=== PATIENT | female | born 1995 | race African-American/Black ===

== ENCOUNTER 2020-12-25 05:20 | Emergency (ER) | payer BC, SELFPAY ==
--- NOTE | ~2020-12-25 | CT_ITS ---
EXAMINATION: CT abdomen pelvis w con DATE: 12/25/2020 06:21 INDICATION: Upper abdominal pain TECHNIQUE: Computed tomography (CT) of the abdomen and pelvis was performed with 100 cc Omnipaque 350 intravenous contrast. The dose-length product was 256.34 mGy-cm. Automated exposure control and iterative reconstruction technique were employed. COMPARISON: None. FINDINGS: Lung bases are unremarkable. Heart size is normal. No significant vascular abnormality. No lymphadenopathy. The liver, spleen, pancreas, adrenal glands and kidneys are unremarkable. Gallbladder is present. No lymphadenopathy. Gallbladder is present. Nonobstructive bowel gas pattern. No abnormal pelvic masses. No free air or free fluid. No acute osseous abnormality. IMPRESSION: 1. No acute abdominal abnormality. Reviewed, dictated and finalized at location A.
[2020-12-25 05:28] VITALS: PULSE 99; RESP 16; TEMP 36.2; O2SAT 100
[2020-12-25 05:44] LABS: Basophils Percent Auto 0.4 % (0.2-1.2); Eosinophils Absolute Auto 0.1 K/mm3 (0-0.3); Eosinophils Percent Auto 0.9 % (0-4.4); Hematocrit 44.2 % (37.0-47.0); Hemoglobin 14.8 g/dL (12.0-15.0); Immature Granulocyte Absolute 0.03 K/mm3 (0.00-0.031); Immature Granulocyte Percent A 0.4 % (0-0.5); Lymphocytes Absolute Auto 2.34 K/mm3 (0.9-3.2); Lymphocytes Percent Auto 30.4 % (18.3-44.2); Mean Corpuscular HGB Conc 33.5 g/dl (32-36); Mean Corpuscular Hemoglobin 29.7 pg (26-34); Mean Corpuscular Volume 88.8 fl (80-100); Mean Platelet Volume 9.4 fl (7.4-10.4); Monocytes Absolute Auto 0.6 K/mm3 (0.1-0.6); Monocytes Percent Auto 7.5 % (2.6-8.5); Neutrophils Absolute Auto 4.7 K/mm3 (1.3-6.7); Neutrophils Percent Auto 60.4 % (45.5-73.1); Platelet Count Result 267 k/mm3 (150-375); Red Blood Count 4.98 M/mm3 (4.2-5.4); Red Cell Distribution Width 11.9 % (11.5-14.5); White Blood Count 7.7 K/mm3 (4.5-10.0)
[2020-12-25 05:46] LABS: Add Urine Microscopic? NO; Appearance Urine Clear (Clear); Bilirubin Urine Negative (Negative); Blood Urine Negative (Negative); Color Urine Yellow (Yellow); Glucose Urine UA Negative (Negative); Ketones Urine Negative (Negative); Leukocyte Esterase Ur Negative LEU/UL (Negative); Nitrate Urine Negative (Negative); Protein Urine Negative (Negative); Specific Grav Ur 1.014 (1.001-1.035); Urobilinogen Urine Negative mg/dL (<2.0)
[2020-12-25 05:56] LABS: Alanine Aminotransferase 13 U/L (4-35); Albumin Level 4.7 g/dL (3.5-5.1); Alkaline Phosphatase 52 U/L (38-126); Anion Gap 7 mmol/L (8-16); Aspartate Amino Transferase 24 U/L (14-36); Bilirubin,Total 0.5 mg/dL (0.2-1.3); Blood Urea Nitrogen 12 mg/dL (7-17); Calcium 9.8 mg/dL (8.4-10.2); Carbon Dioxide 31 mmol/L (22-30); Chloride 102 mmol/L (98-107); Estimated CRCL calculation 96 ml/min; Estimated Glomerular Filt Rate > 60; Glucose 98 mg/dL (65-105); Lipase 61 U/L (23-300); Potassium 3.7 mmol/L (3.4-5.0); Sodium 140 mmol/L (137-145)
--- NOTE | 2020-12-25 05:59 | ED.ABDPAIN ---
HPI - Abdominal Pain General Chief Complaint: Abdominal Pain Stated Complaint: abd pain, nausea Time Seen by Provider: 12/25/20 05:32 Source: patient and RN notes reviewed Mode of arrival: ambulatory Limitations: no limitations History of Present Illness HPI narrative: This patient is a 25 year old female who presents for evaluation of mid abdominal pain. She states this pain is intermittent and it has been present for 4 days. She states her pain may last for 45 minutes and she currently has pain now. She has been taking ibuprofen every other day for her chronic feet pain and abdominal pain. She has severe nausea but denies diarrhea or vomiting. She also denies melena. She denies fever or chills. She states she has had similar pain in the past but this is worse. She reports evaluation with upper endoscopy years ago and she was diagnosed with gastritis. Related Data Allergies Allergy/AdvReac Type Severity Reaction Status Date / Time adalimumab Allergy Intermediate RASH AT Verified 08/09/16 12:36 INJECTION SITE meloxicam AdvReac Intermediate HIVES ON Verified 08/09/16 12:36 LEGS EMBREL Allergy Intermediate RASH AT Uncoded 08/09/16 12:36 INJECTION SITE Chloroprep Allergy Rash Uncoded 12/25/20 05:33 Review of Systems Review of Systems: All systems reviewed & are unremarkable except as noted in HPI and below Constitutional: Constitutional: Denies chills and Denies fever(s) Cardiovascular: Cardiovascular: Denies chest pain Respiratory: Respiratory: Denies cough and Denies dyspnea Gastrointestinal: Gastrointestinal: Reports abdominal pain, Denies constipation, Denies diarrhea, Reports nausea and Denies vomiting Musculoskeletal: Musculoskeletal: Denies back pain [facility] Past Medical History Medical History (Updated 12/25/20 @ 07:15 by Vale Sinha MD) Gastritis Rheumatoid arthritis Uveitis Surgical History Surgical History (Updated 12/25/20 @ 06:00 by Vale Sinha MD) H/O endoscopy Social History Social History (Updated 12/25/20 @ 06:00 by Vale Sinha MD) Smoking status: Never smoker Exam Const: General: no acute distress and alert Orientation/consciousness: patient oriented x3 Eyes: EOM: EOMs intact bilaterally Resp: Effort & Inspection: normal respiratory effort and no retractions Auscultation: clear to auscultation bilaterally Cardio: Rate: regular rate Rhythm: regular rhythm Heart sounds: no murmurs GI: GI Palp: Yes Soft to palpation, Yes Tenderness to palpation present (GI) (RUQ, epigastric, LUQ) and No Guarding due to palpation present (GI) Auscultation: normal bowel sounds Skin: General skin exam: normal color Rashes: no rashes Neuro: General: patient oriented x3, moves all extremities and CN's II-XI intact bilaterally Course Reevaluation(s) Reevaluation #1: I discussed with patient labs and CT are unremarkable. She will treated for PUD as cause of her pain. She will follow up with GI or PCP Date: 12/25/20 Vital Signs Vital signs: Vital Signs Temperature 97.2 F L 12/25/20 05:28 Pulse Rate 99 12/25/20 05:28 Respiratory Rate 16 12/25/20 05:28 Pulse Oximetry 100 12/25/20 05:28 Temperature 97.2 F L 12/25/20 05:28 Pulse Rate 94 12/25/20 06:43 Respiratory Rate 20 12/25/20 06:43 Blood Pressure 115/77 12/25/20 06:43 Pulse Oximetry 100 12/25/20 06:43 MDM - Abdominal Pain Lab Data Attestation: I reviewed the patient's lab results. Result diagrams: 12/25/20 05:33 12/25/20 05:33 Labs: Lab Results 12/25/20 12/25/20 12/25/20 Range/Units 05:33 05:33 05:34 WBC 7.7 (4.5-10.0) K/mm3 RBC 4.98 (4.2-5.4) M/mm3 Hgb 14.8 (12.0-15.0) g/dL Hct 44.2 (37.0-47.0) % MCV 88.8 (80-100) fl MCH 29.7 (26-34) pg MCHC 33.5 (32-36) g/dl RDW 11.9 (11.5-14.5) % Plt Count 267 (150-375) k/mm3 MPV 9.4 (7.4-10.4) fl Immature Gran % (Auto) 0.4 (0
[2020-12-25] MEDS: LACTATED RINGERS 1,000 ML 999 ML IV CONT (06:17)
[2020-12-25] MEDS: PANTOPRAZOLE SODIUM IV 40 MG VIAL IV PUSH (06:18)
[2020-12-25] MEDS: ONDANSETRON INJ 4 MG/2 ML VIAL IV PUSH (06:18)
[2020-12-25 06:43] VITALS: BP 115/77; PULSE 94; RESP 20; O2SAT 100
[2020-12-25] MEDS: BELLADONNA ALK/PHENOB ELIX 10 ML, MAG HYDROX/ALUMINUM HYD/SIMETH 30 ML, LIDOCAINE HCL 2... PO (07:19)
[2020-12-25 07:29] VITALS: BP 101/65; PULSE 76; RESP 18; O2SAT 100
== END 2020-12-25 07:30 | disposition home or self-care (01) ==
PROVIDERS: Emergency Provider General Practice
DX: R10.13 Epigastric pain (principal); M06.9 Rheumatoid arthritis, unspecified
CPT/HCPCS: 36415; 74177; 80053; 81003; 81025; 83690; 85025; 96361; 96365; 96375; 99284; A9270; C9113; J0131; J2405; J7120; Q9967

== ENCOUNTER 2021-03-29 12:37 | Emergency (ER) | payer BC, SELFPAY ==
[2021-03-29 13:06] VITALS: BP 141/77; PULSE 90; RESP 16; TEMP 36.6; O2SAT 100
[2021-03-29 13:31] LABS: Basophils Percent Auto 0.3 % (0.2-1.2); Eosinophils Percent Auto 0.5 % (0-4.4); Hematocrit 39.1 % (37.0-47.0); Hemoglobin 13.2 g/dL (12.0-15.0); Immature Granulocyte Absolute 0.03 K/mm3 (0.00-0.031); Immature Granulocyte Percent A 0.3 % (0-0.5); Lymphocytes Percent Auto 12.7 % (18.3-44.2); Mean Corpuscular HGB Conc 33.8 g/dl (32-36); Mean Corpuscular Hemoglobin 30.1 pg (26-34); Mean Corpuscular Volume 89.1 fl (80-100); Mean Platelet Volume 9.5 fl (7.4-10.4); Monocytes Absolute Auto 0.3 K/mm3 (0.1-0.6); Neutrophils Absolute Auto 7.2 K/mm3 (1.3-6.7); Neutrophils Percent Auto 83.2 % (45.5-73.1); Platelet Count Result 268 k/mm3 (150-375); Red Blood Count 4.39 M/mm3 (4.2-5.4); Red Cell Distribution Width 11.9 % (11.5-14.5); White Blood Count 8.6 K/mm3 (4.5-10.0)
[2021-03-29 13:34] LABS: Add Urine Microscopic? NO; Appearance Urine Clear (Clear); Bilirubin Urine Negative (Negative); Blood Urine Negative (Negative); Color Urine Straw (Yellow); Glucose Urine UA Negative (Negative); Ketones Urine Negative (Negative); Leukocyte Esterase Ur Negative LEU/UL (Negative); Nitrate Urine Negative (Negative); Protein Urine Negative (Negative); Specific Grav Ur 1.006 (1.001-1.035); Urobilinogen Urine Negative mg/dL (<2.0)
[2021-03-29 13:50] LABS: Alanine Aminotransferase 13 U/L (4-35); Albumin Level 4.4 g/dL (3.5-5.1); Alkaline Phosphatase 53 U/L (38-126); Anion Gap 6 mmol/L (8-16); Aspartate Amino Transferase 23 U/L (14-36); Bilirubin,Total 0.2 mg/dL (0.2-1.3); Blood Urea Nitrogen 8 mg/dL (7-17); Calcium 9.1 mg/dL (8.4-10.2); Carbon Dioxide 26 mmol/L (22-30); Chloride 100 mmol/L (98-107); Estimated CRCL calculation 121 ml/min; Estimated Glomerular Filt Rate > 60; Glucose 109 mg/dL (65-110); Lipase 83 U/L (23-300); Potassium 3.7 mmol/L (3.4-5.0); Sodium 132 mmol/L (137-145)
--- NOTE | 2021-03-29 17:14 | PC.NURSE ---
patient called from the waiting room without answer at this time. patient not answering in waiting room or outside.
== END 2021-03-29 17:48 | disposition left against medical advice (07) ==
PROVIDERS: Emergency Provider Emergency Medicine
DX: Z53.21 Procedure and treatment not carried out due to patient leaving prior to being seen by health care provider (principal); R10.11 Right upper quadrant pain
CPT/HCPCS: 36415; 80053; 81003; 81025; 83690; 85025; 99199

== ENCOUNTER 2022-02-03 11:42 | Outpatient (RCR) | payer OTHER, SELFPAY ==
[2022-02-02 09:34] LABS: Hemoglobin 11.2 g/dL (12.0-15.0)
[2022-02-02 09:52] LABS: Glucose 1 Hour PP 50gm Dose 90 mg/dL
[2022-02-02 10:30] LABS: HIV 1/2 Ab P24 Ag Result Negative (Negative)
[2022-02-03] MEDS: RHO(D) IMMUNE GLOBULIN 300 MCG/2 ML SYRINGE IM (15:50)
== END 2022-02-03 12:00 | disposition home or self-care (01) ==
LOC: ANHLAB 11:42
PROVIDERS: Visit Provider Advanced Practice Midwife
DX: Z11.4 Encounter for screening for human immunodeficiency virus [HIV] (principal); Z29.13 Encounter for prophylactic Rho(D) immune globulin; O36.0190 Maternal care for anti-D [Rh] antibodies, unspecified trimester, not applicable or unspecified; Z3A.00 Weeks of gestation of pregnancy not specified
CPT/HCPCS: 36415; 82947; 85014; 85018; 85461; 86703; 90384; 96372; G0432; J2790

== ENCOUNTER 2022-02-27 16:37 | Outpatient (RCR) | payer OTHER, SELFPAY ==
[2022-02-27 17:17] VITALS: BP 123/65; PULSE 102
== END 2022-03-31 14:56 | disposition home or self-care (01) ==
LOC: ANHOBOP 16:37
PROVIDERS: PCP Physician Assistant; Visit Provider Obstetrics & Gynecology
DX: O36.8130 Decreased fetal movements, third trimester, not applicable or unspecified (principal); Z3A.36 36 weeks gestation of pregnancy
CPT/HCPCS: 59025

== ENCOUNTER 2022-03-16 15:01 | Outpatient (CLI) | payer OTHER, SELFPAY ==
[2022-03-16 15:24] LABS: Hematocrit 35.4 % (37.0-47.0); Hemoglobin 11.8 g/dL (12.0-15.0); Mean Corpuscular HGB Conc 33.3 g/dl (32-36); Mean Corpuscular Hemoglobin 30.3 pg (26-34); Mean Platelet Volume 9.9 fl (7.4-10.4); Platelet Count Result 187 k/mm3 (150-375); Red Blood Count 3.89 M/mm3 (4.2-5.4); Red Cell Distribution Width 12.7 % (11.5-14.5); White Blood Count 13.1 K/mm3 (4.5-10.0)
[2022-03-17 16:31] LABS: Rapid Plasma Reagin Non-Reactive (NonReactive)
== END 2022-03-16 15:02 | disposition home or self-care (01) ==
LOC: ANHLAB 15:04
PROVIDERS: PCP Physician Assistant; Visit Provider Obstetrics & Gynecology
DX: Z36.89 Encounter for other specified antenatal screening (principal); Z3A.00 Weeks of gestation of pregnancy not specified
CPT/HCPCS: 36415; 85027; 86592; 86850; 86880; 86900; 86901

== ENCOUNTER 2022-03-17 06:47 | Inpatient (IN) | payer OTHER, SELFPAY ==
--- NOTE | 2022-03-16 15:02 | P.PNAN_ITS ---
Anes - Initial Pre Proc Eval Procedure: Operation Date: 03/17/22 09:00 Proposed Procedures p Section - Jane Osorio MD Date/Time: 03/16/22 15:02 Surgeon: Jane Osorio MD Pre Op Diagnosis: Patient Data Age: 26 Gender: F Height: Weight: Allergies Allergy/AdvReac Type Severity Reaction Status Date / Time adalimumab Allergy Intermediate RASH AT Verified 08/09/16 12:36 INJECTION SITE meloxicam AdvReac Intermediate HIVES ON Verified 08/09/16 12:36 LEGS EMBREL Allergy Intermediate RASH AT Uncoded 08/09/16 12:36 INJECTION SITE Chloroprep Allergy Rash Uncoded 12/25/20 05:33 Home Medications Medication Instructions Recorded Confirmed Type omeprazole 40 mg capsule,delayed 40 mg PO DAILY #14 caps 12/25/20 Rx release ondansetron 4 mg disintegrating 4 mg PO Q6H PRN nausea and 12/25/20 Rx tablet vomiting #10 tabs Patient hx anesthesia problems: none Family hx anesthesia problems: none Results Review: All pre-operative results and documents have been reviewed as part of the pre- operative evaluation. [facility] Past Medical History Medical History (Updated 12/26/20 @ 00:01 by Walker Mccray) Gastritis Rheumatoid arthritis Uveitis Surgical History Surgical History (Updated 12/25/20 @ 06:00 by Vale Sinha MD) H/O endoscopy Family History Family History (Updated 02/21/22 @ 16:15 by Lorena Kc RN) Sibling Asthma Father Gout Mother Hypothyroidism Arthritis Social History Social History (Updated 12/25/20 @ 06:00 by Vale Sinha MD) Smoking status: Never smoker Substance use: current Spiritual care concerns: No Anes - Eval Final PreProcedure Day of Procedure 03/16/22 15:02 Patient weight: overweight Heart: regular rate and rhythm Lungs: clear to auscultation and normal air movement Airway: Mallampati scale class II Neurological: alert and oriented Last oral intake: >/= 8 hours ASA classification: II Emergent: no Anesthetic plan: proceed Anesthesia type and monitoring: regional spinal Results Review: All pre-operative results and documents have been reviewed as part of the pre- operative evaluation. Informed Consent: The patient's anesthetic plan and its attendant risks and benefits were discussed with the patient/family/POA. Questions were solicited and answers provided to the satisfaction of the patient/family/POA.
[2022-03-17] VITALS (53 sets, daily range): BP systolic 107–155; BP diastolic 25–104; PULSE 31–143; RESP 13–20; TEMP 36.3–36.8; O2SAT 78–100; BMI 24.5
--- OUTSIDE RECORDS SUMMARY | 2022-03-17 06:51 | XMS_ITS ---
:1995 Author Care Team Providers Name Role Phone GRIFFIN GAMEZ MD Primary Care Provider [phone] Allergies Code Code System Name Reaction Severity Status Onset 65297 RxNorm Meloxicam Hives Moderate to Severe Active ? Notes: Some allergies listed in Docume nt: #[id number] could not be added to this patient's chart. Please review this docu ment and add these allergies to the patient's chart manually as needed. Medications Name Status Start Date Stop Date ? ? amoxicillin 500 mg capsule Active ? Not a vailable amoxicillin 875 mg-potassium clavulanate 125 mg tablet Active ? Not available TAKE 1 TABLET BY MOUTH TWICE DAILY WITH FOOD Aurovela 24 Fe 1 mg-20 mcg (24)/75 mg (4) tablet Active ? Not available TAKE 1 TABLET BY MOUTH DAILY azithromycin 250 mg tablet Active ? Not a vailable calcium carbonate 600 mg-vitamin D3 20 mcg (800 unit) tablet Act mary ? Not available TK ONE T PO BID cephalexin 500 mg capsule Active ? Not av ailable TAKE 1 CAPSULE BY MOUTH THREE TIMES DAILY UNTIL ALL TAKEN cetirizine 10 mg tablet Completed ? 04/23/20 15 TK 1 T PO QD PRN ciprofloxacin 250 mg tablet Completed ? 04/21 clindamycin HCl 300 mg capsule Completed ? 0 05/15/2014 Colace 100 mg capsule Active ? Not availa ble TAKE ONE CAPSULE BY MOUTH EVERY DAY IN THE EVENING Cortisporin-TC 3.3 mg-3 mg-10 mg-0.5 mg/mL ear drops,suspension Active ? Not available Instill 3 drops TID in L ear for 1 week diclofenac sodium 75 mg tablet,delayed release Active ? Not available Take 1 tablet twice a day by oral route. duloxetine 30 mg capsule,delayed release Active ? Not avai
--- OUTSIDE RECORDS SUMMARY | 2022-03-17 06:51 | XMS_ITS | Encounter Summary ---
:1995 Author Care Team Providers Name Role Phone Yanni Nunez Primary Care Provider [phone] Reason for Visit OB visit Non-stress test for decreased growth Assessment and Plan 1. Finding of growth ? non-stress test Discussion Note: None recorded.Patient educational handouts: No information available. Plan of Care Reminders Provider Appointments Surg Post Op 03/29/2022 11:45AM Jane Osorio MD Lab None recorded. ? ? Referral None recorded. ? ? Procedures None recorded. ? ? Surgeries None recorded. ? ? Imaging Non-stress Test 03/10/2022 [place] Medications Name Start Date ? ? duloxetine 20 mg capsule,delayed release ? TAKE 1 CAPSULE BY MOUTH EVERY DAY duloxetine 30 mg capsule,delayed release ? TAKE 1 CAPSULE BY MOUTH DAILY famotidine 40 mg tablet ? TAKE 1 TABLET BY MOUTH EVERY NIGHT AT BEDTIME gabapentin 300 mg capsule ? TAKE 1 CAPSULE BY MOUTH THREE TIMES DAILY hydrocortisone 2.5 % topical cream ? hydrocortisone-pramoxine 2.5 %-1 % rectal cream ? Insert 1 application twice a day by rectal route. hydroxyzine HCl 25 mg tablet ? TAKE 1 TABLET BY MOUTH EVERY DAY AT BEDTIME omeprazole 40 mg capsule,delayed release ? TAKE 1 CAPSULE BY MOUTH EVERY DAY BEFORE A MEAL ondansetron 4 mg disintegrating tablet ? DISSOLVE 1 TABLET ON THE TONGUE EVERY 8 HOURS 28 mg iron-800 mcg tablet ? TAKE 1 TABLET BY MOUTH EVERY DAY DIRECTED Vitamin 27 mg iron-0.8 mg tablet ? TAKE 1 TABLET BY MOUTH BY MOUTH EVERY DAY promethazine 25 mg tablet ? TAKE 1/2 TABLET B
--- OUTSIDE RECORDS SUMMARY | 2022-03-17 06:51 | XMS_ITS | Encounter Summary ---
:1995 Author Care Team Providers Name Role Phone Yanni Nunez Primary Care Provider [phone] Reason for Visit OB visit Assessment and Plan Assessment Note Patient is ___weeks . Discussed plan. 1. External hemorrhoids ? hydrocortisone-pramoxine 2.5 %-1 % re ctal cream 2. Routine care Discussion Note: None recorded.Patient educational handouts: No information available. Plan of Care Reminders Provider Appointments Surg Post Op 03/29/2022 11:45AM Jane Osorio MD Lab None recorded. ? ? Referral None recorded. ? ? Procedures None recorded. ? ? Surgeries None recorded. ? ? Imaging None recorded. ? ? Medications Name Start Date ? ? duloxetine [...] DAY DIRECTED Vitamin 27 mg iron-0.8 mg tabl
--- OUTSIDE RECORDS SUMMARY | 2022-03-17 06:51 | XMS_ITS | Encounter Summary ---
:1995 Author Care Team Providers Name Role Phone Yanni Nunez Primary Care Provider [phone] Reason for Visit OB visit Assessment and Plan 1. Deliveries by 2. Finding of growth 3. Sterilization requested Discussion Note: None recorded.Patient educational handouts: No [...] 25 mg tablet ? TAKE 1/2 TABLET BY MOUTH E
--- OUTSIDE RECORDS SUMMARY | 2022-03-17 06:51 | XMS_ITS | Encounter Summary ---
:1995 Author Care Team Providers Name Role Phone Yanni Nunez Primary Care Provider [phone] Reason for Visit None recorded. Assessment and Plan 1. Pre-existing maternal disease compli cating ? US, obstetric, follow-up Discussion Note: None recorded.Patient educational handouts: No information available. Plan of Care Reminders Provider Appointments Surg Post Op 03/29/2022 11:45AM Jane Osorio MD Lab None recorded. ? ? Referral None recorded. ? ? Procedures None recorded. ? ? Surgeries None recorded. ? ? Imaging US, Obstetric, 02/22/2022 [place] Follow-up Medications Name Start Date ? ? duloxetine [...]
--- OUTSIDE RECORDS SUMMARY | 2022-03-17 06:51 | XMS_ITS | Encounter Summary ---
:1995 Author Care Team Providers Name Role Phone Yanni Nunez Primary Care Provider [phone] Reason for Visit None recorded. Assessment and Plan 1. growth restriction ? US, obstetric, biophysical profile + non-stress test 2. condition affecting obstetrica l care of mother ? US, doppler, umbilical artery v elocimetry Discussion Note: None recorded.Patient educational handouts: No information available. Plan of Care Reminders Provider Appointments Surg Post Op 03/29/2022 Jane cabrales MD 11:45AM Lab None recorded. ? ? Referral None recorded. ? ? Procedures None recorded. ? ? Surgeries None recorded. ? ? Imaging US, Obstetric, Biophysical 03/10/2022 [facility] Profile + Non-stress Test ? US, Doppler, 03/10/2022 [place] Umbilical Artery Velocimetry Medications Name Start Date ? ? duloxetine [...] TAKE 1 CAPSULE BY MOUTH EVERY DAY BEFOR
--- OUTSIDE RECORDS SUMMARY | 2022-03-17 06:51 | XMS_ITS | Encounter Summary ---
:1995 Author Care Team Providers Name Role Phone Yanni Nunez Primary Care Provider [phone] Reason for Visit new OB NEW PATIENT NEW OB [id number] EDC 03/24/2022 LMP 05/22/2022 unsure Assessment and Plan 1. Routine care 2. Nausea and vomiting ? ondansetron 4 mg disintegrating table t Discussion Note: None recorded.Patient educational handouts: No [...]
--- OUTSIDE RECORDS SUMMARY | 2022-03-17 06:51 | XMS_ITS ---
:1995 Author Care Team Providers Name Role Phone SHEMAR LEIVA Primary Care Provider [phone] Allergies Code Code System Name Reaction Severity Status Onset 393913 RxNorm Chloraseptic Rash Severe Active ? 5293 RxNorm Hexachlorophene Rash Moderate Active ? 684487 RxNorm Humira Edema Moderate Active ? 47834 RxNorm Meloxicam Hives Moderate Active ? 3190534 RxNorm Pembrolizumab ? ? Active ? Medications Name Status Start Date Stop Date ? ? amoxicillin 500 mg capsule Completed ? 02/22 amoxicillin 875 mg-potassium clavulanate 125 mg tablet Completed ? 02/22/2022 TAKE 1 TABLET BY MOUTH TWICE DAILY WITH FOOD cephalexin 500 mg capsule Completed ? 2021 TAKE 1 CAPSULE BY MOUTH THREE TIMES DAILY UNTIL ALL TAKEN duloxetine 20 mg capsule,delayed release Active ? Not available TAKE 1 CAPSULE BY MOUTH EVERY DAY duloxetine 30 mg capsule,delayed release Active ? Not available TAKE 1 CAPSULE BY MOUTH DAILY famotidine 40 mg tablet Active ? Not avai lable fluconazole 150 mg tablet Completed ? 2021 TAKE 1 TABLET BY MOUTH gabapentin 300 mg capsule Active ? Not av ailable TAKE 1 CAPSULE BY MOUTH THREE TIMES DAILY hydrocodone 5 mg-acetaminophen 325 mg tablet Completed ? 02/22/2022 hydrocodone 7.5 mg-ibuprofen 200 mg tablet Completed ? 02/22/2022 TAKE 1 TABLET BY MOUTH THREE TIMES DAILY NEEDED FOR PAIN hydrocortisone 2.5 % topical cream Active ? Not available hydrocortisone-pramoxine 2.5 %-1 % rectal cream Active ? Not available Insert 1 application twice a day by rectal route. hydroxyzine HCl 25 mg tablet Active ?
--- OUTSIDE RECORDS SUMMARY | 2022-03-17 06:51 | XMS_ITS | Encounter Summary ---
:1995 Author Care Team Providers Name Role Phone Yanni Nunez Primary Care Provider [phone] Reason for Visit None recorded. Assessment and Plan 1. COVID-19 ? US, obstetric, follow-up Discussion Note: None recorded.Patient educational handouts: No information available. Plan of Care Reminders Provider Appointments Surg Post Op 03/29/2022 11:45AM Jane Osorio MD Lab None recorded. ? ? Referral None recorded. ? ? Procedures None recorded. ? ? Surgeries None recorded. ? ? Imaging US, Obstetric, 01/26/2022 [place] Follow-up Medications Name Start Date ? ? [...] BY MOUTH EVERY DAY promethazine 25 mg t
--- OUTSIDE RECORDS SUMMARY | 2022-03-17 06:51 | XMS_ITS | Encounter Summary ---
:1995 Author Care Team Providers Name Role Phone Yanni Nunez Primary Care Provider [phone] Reason for Visit None recorded. Assessment and Plan 1. growth restriction ? non-stress test Discussion Note: None recorded.Patient educational handouts: No information available. Plan of Care Reminders Provider Appointments Surg Post Op 03/29/2022 11:45AM Jane Osorio MD Lab None recorded. ? ? Referral None recorded. ? ? Procedures None recorded. ? ? Surgeries None recorded. ? ? Imaging Non-stress Test 03/03/2022 [place] Medications Name Start Date ? ? duloxetine [...] tablet ? TAKE 1/2 TABLET BY MOUTH EVERY 6 HOURS NEEDED FOR NAUSEA Medications Ad
--- OUTSIDE RECORDS SUMMARY | 2022-03-17 06:51 | XMS_ITS | Encounter Summary ---
:1995 Author Care Team Providers Name Role Phone Yanni Nunez Primary Care Provider [phone] Reason for Visit blood pressure Assessment and Plan Discussion Note BP is normal. Pt is having RUQ pain and blurry vision/spots in vision x 2 wks. Reviewed with SB and to get baseline PIH labs today. Told pt to call golf course patroller to see if she needs to be evaluated ther e r/t blurred vision. Gave PIH precautions. Pt also c/o pain around umbilicus. Pt de nies bleeding. Gave precautions. Pt verbalized understanding. JIM benites Patient educational handouts: No information available. Plan of [...]
--- OUTSIDE RECORDS SUMMARY | 2022-03-17 06:51 | XMS_ITS | Encounter Summary ---
:1995 Author Care Team Providers Name Role Phone Yanni Nunez Primary Care Provider [phone] Reason for Visit None recorded. Assessment and Plan 1. growth restriction ? US, obstetric, biophysical profile + non-stress test ? US, doppler, umbilical artery v elocimetry Discussion Note: None recorded.Patient educational handouts: No information available. Plan of Care Reminders Provider Appointments Surg Post Op 03/29/2022 Jane cabrales MD 11:45AM Lab None recorded. ? ? Referral None recorded. ? ? Procedures None recorded. ? ? Surgeries None recorded. ? ? Imaging US, Obstetric, Biophysical 03/03/2022 [facility] Profile + Non-stress Test ? US, Doppler, 03/03/2022 [place] Umbilical Artery Velocimetry Medications Name Start Date [...]
--- OUTSIDE RECORDS SUMMARY | 2022-03-17 06:51 | XMS_ITS | Encounter Summary ---
:1995 Author Care Team Providers Name Role Phone Yanni Nunez Primary Care Provider [phone] Reason for Visit OB visit OB [id number] EDC 03/24/2022 LMP 05/22/2021 Assessment and Plan Assessment Note Patient is 35___weeks . Discuss ed plan. 1. Routine care Discussion Note: None recorded.Patient educational [...]
--- OUTSIDE RECORDS SUMMARY | 2022-03-17 06:51 | XMS_ITS | Encounter Summary ---
:1995 Author Care Team Providers Name Role Phone Yanni Nunez Primary Care Provider [phone] Reason for Visit OB visit Assessment and Plan 1. Finding of growth 2. Deliveries by ? section (SURG) Discussion Note: None recorded.Patient educational handouts: No information available. Plan of Care Reminders Provider Appointments Surg Post Op 03/29/2022 Jane cabrales MD 11:45AM Lab None recorded. ? ? Referral None recorded. ? ? Procedures None recorded. ? ? Surgeries Section (SURG) 03/17/2022 [facility] None recorded. ? ? Medications Name [...]
--- NOTE | 2022-03-17 07:03 | LDADM ---
This patient, Payton Michel, was admitted to Labor/Delivery/Recovery 120 on 03/17/22 at 06:47. Plans for labor, pain management and were discussed with patient. Patient/family oriented to hospital policies and general routines including ID bracelet, bed and alarms, visiting hours, pain management, procedures, bathroom and other care routines, personal items, smoking policy, room service/diet and guest tray routines, security routines, and visiting hours. Patient/Family are encouraged to report perceived risks to care and to ask questions if they do not understand what they are told or what they should do. See OBIX for further documentation.
[2022-03-17] MEDS: LACTATED RINGERS 1,000 ML 999 ML IV CONT (07:17)
[2022-03-17] MEDS: LACTATED RINGERS 1,000 ML 125 ML IV CONT (08:15)
--- NOTE | 2022-03-17 08:15 | PM.IMHP ---
H&P: HPI History of Present Illness Date/Time: 03/17/22 08:15 Chief Complaint: R CS Narrative: Payton is a at 39.0 for repeat CS. She was a transfer of care to us at 32w. her is complicated by Rh neg, received Rhogam at 31w, COVID during , started ASA recently, MJ use, decreasing EFW percentile in last 2 mos, and GBS pos. CUrrently on Amox for tooth infection, to be treated definitively after delivery. Review of Systems Review of Systems: All systems reviewed & are unremarkable except as noted in HPI and below PMFSH Past Medical History Medical History (Updated 12/26/20 @ 00:01 by Walker Mccray) Gastritis Rheumatoid arthritis Uveitis Surgical History Surgical History (Updated 12/25/20 @ 06:00 by Vale Sinha MD) H/O endoscopy Family History Family History (Updated 02/21/22 @ 16:15 by Lorena Kc RN) Sibling Asthma Father Gout Mother Hypothyroidism Arthritis Social History Social History (Updated 12/25/20 @ 06:00 by Vale Sinha MD) Smoking status: Never smoker Substance use: current Spiritual care concerns: No Meds Home Medications and Allergies Home Medications Medication Instructions Recorded Confirmed Type omeprazole 40 mg capsule,delayed 40 mg PO DAILY #14 caps 12/25/20 03/17/22 Rx release ondansetron 4 mg disintegrating 4 mg PO Q6H PRN nausea and 12/25/20 03/17/22 Rx tablet vomiting #10 tabs vit no.95-ferrous 1 tablet PO DAILY 03/17/22 03/17/22 History fumarate 28 mg-folic acid 800 mcg tablet () Allergies Allergy/AdvReac Type Severity Reaction Status Date / Time adalimumab Allergy Intermediate RASH AT Verified 03/17/22 07:10 INJECTION SITE meloxicam AdvReac Intermediate HIVES ON Verified 03/17/22 07:10 LEGS EMBREL Allergy Intermediate RASH AT Uncoded 03/17/22 07:10 INJECTION SITE Chloroprep Allergy Rash Uncoded 03/17/22 07:10 Vital Signs Vital Signs - 24 hr 03/17/22 07:01 03/17/22 07:00 Pulse Rate 97 Blood Pressure 119/70 Oxygen Delivery Room Air Exam Const: General: no acute distress Resp: Effort & Inspection: normal respiratory effort Auscultation: clear to auscultation bilaterally Cardio: Rate: regular rate Rhythm: regular rhythm GI: GI Palp: Yes Soft to palpation Extrem: General: normal to inspection Assessment and Plan Additional Plan Plan Repeat CS Discussed RBA, pt consented, all questions answered. will proceed.
--- NOTE | 2022-03-17 08:28 | WPDHPUPDATE1 ---
History and Physical Update Update Date/Time: 03/17/22 08:28 History and Physical has been reviewed, including an updated exam of the patient. There are NO changes in the patient's condition. Risks, benefits, and alternatives have been discussed and questions answered. Patient agrees to proceed with procedure.
[2022-03-17] MEDS: ceFAZolin 2 GM/D5W 50 ML 2 GM/50 ML BAG IVPB (08:49)
--- NOTE | 2022-03-17 09:55 | PM.OBPRVD ---
OB - Delivery Note Procedure Delivery date: 03/17/22 Procedure: Procedures Operation Date: 03/17/22 09:00 Actual Procedure Side Surgeon p Section Jane Osorio MD repeat section Events: Previous Delivery Route of delivery: Specimen: No (placenta) Quantitative Blood Loss (ml): 415 Anesthesia type: Spinal Disposition: Floor Complications: none Narrative: The patient was taken to the OR and received spinal anesthesia. She was placed in dorsal supine position with left lateral tilt. SCDs and del angel were placed. She was prepped and draped in the normal sterile fashion. A Pfannensteil skin incision was made and carried through to the underlying layer of fascia. The fascia was incised in the midline and then extended laterally using Aguillon scissors. The muscles were in the midline and the peritoneum was entered bluntly. The peritoneal incision was extended inferiorly and superiorly with care to avoid the bladder. The bladder blade was then inserted. A bladder flap was unable to be made due to a 3x2cm uterine window. No incision was made, but the uterine window was extended bluntly. AROM was performed and fluid was noted to be clear. The head was delivered, followed by the remainder of the baby. The baby's oropharynx was suctioned. After 30 seconds, the cord was clamped and cut and the was handed off. Cord blood was obtained and the placenta was then removed manually. The uterus was exteriorized. A moist lap sponge was used to curette the endometrium. The uterine incision was then closed with one layer of 0-Vicryl in a running, locking fashion. Good hemostasis was noted. The posterior cul de sac was irrigated with normal saline and cleared of all clot and debris. The uterus was returned to the abdomen. Both lateral gutters were then irrigated. The rectus muscles were inspected and found to be hemostatic. The fascia was reapproximated using 0-Vicryl in running fashion. The subcutaneous tissue was irrigated with normal saline and made hemostatic with Bovie electrocautery. The subcutaneous tissue was reapproximated with a layer of running 2-0 plain gut. The skin was then closed with 4-0 Vicryl in a subcuticular fashion. Steri strips and a bandage were applied. The uterus was evacuated. The patient tolerated the procedure very well. All counts were correct. She was taken to the recovery room in good condition. Baby Date of : 03/17/22 Time of : 09:23 Weeks of gestation at delivery: 39 Infant gender: Male Weight (pounds): 6 Weight (ounces): 9 presentation: vertex Placenta delivery description: Manual Removal Cord Vessel Description: 3 Vessels and Delayed Cord Clamping score one minute: 8 score five minutes: 8
[2022-03-17] MEDS: OXYTOCIN 30 UNITS/NS 500 ML 30 UNITS/500 ML BAG 125 UNITS IV CONT (12:03)
--- NOTE | 2022-03-17 12:06 | PC.NURSE ---
[id number] Introductions were made. Father of baby is holding . Primary RN is present in the room assessing, cleaning, and preparing patient for transfer to floor soon. Mother has her eyes closed but states now is a good time to assist with . Patient appears to be uncomfortable so was placed skin to skin vertically on mothers chest between her breast. Infant squirmed, kicked, crawled, and maneuvered his body over to the left breast and self attached. Mother states her nipple was tender. RN detached to assess nipple. Nipple is not misshaped and is elongated. RN assisted to re-latch and reviewed signs of sucking well with rocking motion. Mother denies pain and understands there might be tenderness but she should not feel biting or a pinching sensation. RN offered inpatient services after patient arrives to the PP floor. Mother voiced understanding.
[2022-03-17] MEDS: KETOROLAC 30 MG/ML VIAL (*BKC) IV PUSH ×2 (12:08→21:24)
--- NOTE | 2022-03-17 13:44 | OBPPTRN ---
1235-Patient transferred to post room #291 via stretcher. Support person present. Oriented to unit, room, information board, rooming in, admission packet and security measures. Patient verbalizes understanding.
[2022-03-17] MEDS: DOCUSATE SODIUM 100 MG CAPSULE PO (16:00)
[2022-03-17] MEDS: DEXTROSE 5%/0.45% SOD CHL 1,000 ML 125 ML IV CONT (16:39)
[2022-03-18 00:50] VITALS: BP 119/69; PULSE 62; RESP 16; TEMP 37
[2022-03-18 05:10] VITALS: BP 133/70; PULSE 77; RESP 20; TEMP 36.8
[2022-03-18] MEDS: IBUPROFEN 600 MG TABLET PO ×3 (05:13→23:23)
[2022-03-18] MEDS: HYDROcodone/acetaminophen (*CRX) 10-325 MG TABLET 1 TAB PO ×5 (05:13→23:22)
[2022-03-18 05:36] LABS: Basophils Absolute Auto 0.1 K/mm3 (0.0-0.1); Basophils Percent Auto 0.4 % (0.2-1.2); Eosinophils Absolute Auto 0.1 K/mm3 (0-0.3); Eosinophils Percent Auto 0.7 % (0-4.4); Hematocrit 33.4 % (37.0-47.0); Hemoglobin 10.9 g/dL (12.0-15.0); Immature Granulocyte Absolute 0.09 K/mm3 (0.00-0.031); Immature Granulocyte Percent A 0.7 % (0-0.5); Lymphocytes Absolute Auto 1.78 K/mm3 (0.9-3.2); Lymphocytes Percent Auto 13.4 % (18.3-44.2); Mean Corpuscular HGB Conc 32.6 g/dl (32-36); Mean Corpuscular Hemoglobin 29.9 pg (26-34); Mean Corpuscular Volume 91.8 fl (80-100); Mean Platelet Volume 10.3 fl (7.4-10.4); Monocytes Absolute Auto 0.6 K/mm3 (0.1-0.6); Monocytes Percent Auto 4.8 % (2.6-8.5); Neutrophils Absolute Auto 10.6 K/mm3 (1.3-6.7); Platelet Count Result 185 k/mm3 (150-375); Red Blood Count 3.64 M/mm3 (4.2-5.4); Red Cell Distribution Width 12.9 % (11.5-14.5); White Blood Count 13.3 K/mm3 (4.5-10.0)
[2022-03-18] MEDS: DOCUSATE SODIUM 100 MG CAPSULE PO ×2 (07:54→17:45)
[2022-03-18 08:00] VITALS: BP 108/69; PULSE 76; RESP 16; TEMP 36.8
--- NOTE | 2022-03-18 08:09 | P.PNOB_ITS ---
OB - PN: Subj Subjective Date/time seen: 03/18/22 08:09 Patient comments: no complaints, pain well controlled, incisional pain, tolerating diet and flatus present OB - PN: Obj Data Labs CBC & Chem 7: 03/18/22 05:06 Labs: Laboratory Results - last 24 hr 03/18/22 05:06 WBC 13.3 H RBC 3.64 L Hgb 10.9 L Hct 33.4 L MCV 91.8 MCH 29.9 MCHC 32.6 RDW 12.9 Plt Count 185 MPV 10.3 Immature Gran % (Auto) 0.7 H Neut % (Auto) 80.0 H Lymph % (Auto) 13.4 L [place] % (Auto) 4.8 Eos % (Auto) 0.7 Baso % (Auto) 0.4 Lymph # (Auto) 1.78 [place] # (Auto) 0.6 Eos # (Auto) 0.1 Baso # (Auto) 0.1 Abs Immat Gran (auto) 0.09 H Absolute Neuts (auto) 10.6 H Absolute Nucleated RBC 0.0 Nucleated RBC % 0.0 OB - PN A/P Plan day: 1 Plan: routine care Comments: No problems, routine care Time Spent With Patient Time: Total time spent is greater than 50% in coordination of care (as documented) at patient's floor/unit and/or counseling patient: Exam Const: General: comfortable, no acute distress and alert Resp: Effort & Inspection: normal respiratory effort Auscultation: no crackles, no rales and no rhonchi Cardio: Rate: regular rate Heart sounds: no click, no murmurs and no rubs GI: Inspection: non-distended GI Palp: No Tenderness to palpation present (GI) Auscultation: normal bowel sounds Other: Incision - CDI Extrem: General: normal to inspection, no pedal edema and no calf tenderness
--- NOTE | 2022-03-18 11:00 | WPDANESPN ---
Anes - Prog Note Post-Op Date/Time: 03/18/22 11:00 Cardiovascular status: normal Respiratory status: normal Airway patency: baseline Mental status: baseline Post-Op hydration status: normal Vital Signs: Last Vital Signs Temp 36.8 C 03/18/22 05:10 Pulse 77 03/18/22 05:10 Resp 20 03/18/22 05:10 BP 133/70 03/18/22 05:10 Pulse Ox 100 03/17/22 16:00 O2 Del Method Room Air 03/17/22 13:00 Pain Score (VAS): 410 I/O: Intake & Output 03/17/22 03/18/22 03/18/22 23:59 07:59 15:59 Intake Total 2183 800 Output Total 750 3200 Balance 1433 -2400 Laboratory Tests 03/18/22 05:06 03/18/22 05:06 WBC 13.3 H RBC 3.64 L Hgb 10.9 L Hct 33.4 L MCV 91.8 MCH 29.9 MCHC 32.6 RDW 12.9 Plt Count 185 MPV 10.3 Immature Gran % (Auto) 0.7 H Neut % (Auto) 80.0 H Lymph % (Auto) 13.4 L [place] % (Auto) 4.8 Eos % (Auto) 0.7 Baso % (Auto) 0.4 Lymph # (Auto) 1.78 [place] # (Auto) 0.6 Eos # (Auto) 0.1 Baso # (Auto) 0.1 Abs Immat Gran (auto) 0.09 H Absolute Neuts (auto) 10.6 H Absolute Nucleated RBC 0.0 Nucleated RBC % 0.0 Post-procedural complaints: none Patient Feedback: Patient satisfied with anesthetic care. Other Findings: Patient had pain and nausea post op that has been treated.
[2022-03-18 17:29] VITALS: BP 131/63; PULSE 78; RESP 18; TEMP 37
[2022-03-18] MEDS: SIMETHICONE 80 MG TAB.CHEW PO ×3 (17:44→23:22)
[2022-03-18 18:45] VITALS: BP 123/66; PULSE 77; RESP 16; TEMP 36.5
[2022-03-19] MEDS: ONDANSETRON HCL ODT 4 MG TABLET PO (05:34)
[2022-03-19] MEDS: DOCUSATE SODIUM 100 MG CAPSULE PO (07:39)
[2022-03-19] MEDS: SIMETHICONE 80 MG TAB.CHEW PO (07:39)
[2022-03-19] MEDS: MULTIVIT/MIN/PREN/FOL AC/IRON TABLET 1 TAB PO (07:39)
[2022-03-19] MEDS: HYDROcodone/acetaminophen (*CRX) 5-325 MG TABLET 1 TAB PO ×2 (07:40→12:20)
[2022-03-19 07:52] VITALS: BP 108/50; PULSE 92; RESP 18; TEMP 36.4
--- NOTE | 2022-03-19 09:02 | PM.OBDSVD ---
DS: Admitting Diagnosis Discharge Date 03/19/22 Admitting Diagnosis term OB - DS: Summary OB Procedures : None OB Procedures Intrapartum: OB Procedures: : None Peripartum Data Procedures: Procedures Operation Date: 03/17/22 09:00 Actual Procedure Side Surgeon p Section Jane Osorio MD Time Spent with Patient Time attestation: Total time spent providing and/or coordinating discharge services: Discharge Plan Discharge Discharging Clinician: Katalina Bates Patient Disposition: Home, Self-Care Activity: pelvic rest Diet: regular Patient Instructions: Antibiotic Form Stand Alone Forms: General Discharge Information Follow-up/Referrals: Katalina Bates MD [Physician] - Discharge Medications: New hydrocodone-acetaminophen 5-325 mg tablet 1 tablet PO Q4H PRN (Reason: pain) Qty: 25 0RF Continued ondansetron 4 mg tablet,disintegrating 4 mg PO Q6H PRN (Reason: nausea and vomiting) Qty: 10 0RF omeprazole 40 mg capsule,delayed release(DR/EC) 40 mg PO DAILY Qty: 14 0RF PNV cmb#[id number]-ferrous fumarate-FA [] 28 mg iron- 800 mcg tablet 1 tablet PO DAILY Date of admission: 03/17/22 06:47 Primary Care Provider: Mayra,Yanni Blair Admitting Provider: Katalina Bates Attending physician on admission: Jane Osorio Condition: Stable
--- NOTE | 2022-03-19 11:10 | WPDANLDNPN2 ---
Anes-Prog Note L&D-Neuraxial Date/Time: 03/19/22 11:10 Neuraxial medications: intrathecal PF morphine Opiod-related complaints: none Patient feedback: Patient satisfied with post-operative pain management.
--- NOTE | 2022-03-19 14:26 | PC.NURSE ---
Patient viewed the discharge video Mother & Baby Care, The First Two Weeks . Patient was given the opportunity and encouraged to ask questions. Patient verbalized understanding of information shared and has been given the mother/baby guide for home reference.
[2022-03-22 11:34] VITALS: BP 117/75; PULSE 84; RESP 20; TEMP 36.9; O2SAT 99
== END 2022-03-19 14:15 | disposition home or self-care (01) | DRG 540 ==
LOC: ANHOB2 03-19 10:52 → ANHLDR 03-22 07:49
PROVIDERS: Admitting Provider Obstetrics & Gynecology; PCP Physician Assistant; Visit Provider Obstetrics & Gynecology
PROC: 10D00Z1 Extraction of Products of Conception, Low, Open Approach (ICD-10-PCS; CPT 59514; principal; 2022-03-17 09:00)
DX: O34.219 Maternal care for unspecified type scar from previous cesarean delivery (principal); Z86.16 Personal history of COVID-19; Z67.91 Unspecified blood type, Rh negative; O99.824 Streptococcus B carrier state complicating childbirth; Z3A.39 39 weeks gestation of pregnancy; Z37.0 Single live birth
CPT/HCPCS: 36415; 85025; A9270; J0131; J0690; J1200; J1885; J2274; J2370; J2405; J2590; J7120

== ENCOUNTER 2022-05-01 01:42 | Day surgery (SDC) | payer OTHER, SELFPAY ==
[2022-04-26 09:43] VITALS: BMI 19.9
--- NOTE | 2022-04-26 10:07 | PC.NURSE ---
Report to the Outpatient Waiting Room, entrance under the green pavilion located off [facility], at 1100 on 05-01-22. OR Time: 1300. - You and your visitor will be asked to self-screen and do not enter if you have any COVID symptoms. - Only one visitor and NO children visitors are allowed at this time. - The patient visitor is requested to leave or wait in car when not with patient due to restrictions. - A mask is required within the hospital. Patients may have clear liquids (water, carbonated beverages, clear teas, apple juice) until 3 hours prior to surgery with a maximum of 20 ounces. 1000 - No food from midnight until time of surgery - Infants may have breast milk until 4 hours before surgery, formula 6 hours prior to surgery. - Children will be allowed to drink immediately following surgery. If applicable, please bring a bottle or sippy cup to assist with drinking. Juice, water, soda, and popsicles are readily available. For infants on formula, please bring formula the day of surgery. Pacifiers are allowed. Take the following medications with a SIP of water the morning of surgery: duloxetine, sertraline Medications to discontinue per physician: Ibuprofen, vitamins and supplements Date to take last dose: Per Dr. Osorio; 04-28-22 Please no make-up, nail comoran, hairspray, perfume, deodorant, or body powder the day of surgery. No jewelry (including any body piercings) or valuables the day of surgery, leave them at home. Please take a shower or bath the night before, or the morning of, surgery with an antibacterial soap. Wear comfortable, loose fitting clothing. Children are encouraged to wear pajamas. - Jewelry must be removed prior to entering the operating room. Rings and piercings that are not removed may be cut off. - The hospital will not accept responsibility for valuables. - Please leave all valuables, including medications, at home the day of surgery. If you are going home after surgery, a licensed drivers license examiner must drive you home. - NO public transportation without another adult. - We recommend that an adult stay with you for 24 hours following discharge. - We also recommend that you do not drive, make important decision, drink alcoholic beverages, or take any drugs that were not prescribed by your health care provider for at least 24 hours after your discharge time. For Pediatric surgeries, we recommend two adults accompany the child home (only one inside the building at this time). Follow any additional instructions given to you from your surgeon. If you or anyone in your household have experienced Covid symptoms in the past week, please notify your surgeon or the nurse liaison at the phone number below for possible testing. Telephone instructions given to Payton Michel and asked if any additional questions and then verbalized understanding. Patient advised to call surgeon office or pre surgery nurse liaison [phone] if any additional questions.
[2022-05-01] VITALS (12 sets, daily range): BP systolic 103–134; BP diastolic 53–84; PULSE 54–95; RESP 12–20; TEMP 36.8–37.2; O2SAT 98–100
[2022-05-01] MEDS: ACETAMINOPHEN 500 MG TABLET 1000 MG PO (11:26)
[2022-05-01] MEDS: SCOPOLAMINE 1.5 MG PATCH TRANSDERM (11:48)
[2022-05-01] MEDS: LACTATED RINGERS 1,000 ML 30 ML IV CONT ×2 (11:50→16:00)
--- NOTE | 2022-05-01 11:55 | PHAR ---
KETOROLAC ORDERED WITH MELOXICAM ADVERSE REACTION OF HIVES ON LEGS. PER JANUARY IN PRE-OP PATIENT CAN TAKE NSAIDS WITH NO ISSUES.
--- NOTE | 2022-05-01 11:57 | PM.IMHP ---
H&P: HPI History of Present Illness Date/Time: 05/01/22 11:57 Chief Complaint: sterilization Narrative: Payton is a 27yyo here for bilateral LSC salpingectomy for sterilization. She is certain, has thought about this for a while. CS x2. Also has RA and GERD. Review of Systems Review of Systems: All systems reviewed & are unremarkable except as noted in HPI and below PMFSH Past Medical History Medical History (Updated 05/01/22 @ 11:58 by Jane Osorio MD) Gastritis Rheumatoid arthritis Uveitis Surgical History Surgical History (Updated 12/25/20 @ 06:00 by Vale Sinha MD) H/O endoscopy Family History Family History (Updated 02/21/22 @ 16:15 by Lorena Kc RN) Sibling Asthma Father Gout Mother Hypothyroidism Arthritis Social History Social History (Updated 12/25/20 @ 06:00 by Vale Sinha MD) Smoking packs per day: 0.25 Smoking cigarettes per day: 5.0 Years smoked: 3 Smoking pack-years: 0.75 Smoking status: Former smoker Tobacco type: cigarettes Second hand tobacco smoke exposure: No Alcohol intake: current Alcohol use details: very rarely Substance use: current Substance use type: marijuana Other substance usage details: daily Living arrangements: with family Spiritual care concerns: No Meds Home Medications and Allergies Home Medications Medication Instructions Recorded Confirmed Type duloxetine 30 mg capsule,delayed 30 mg PO DAILY 04/26/22 04/26/22 History release ibuprofen 200 mg tablet 400 mg PO Q6H PRN Pain, Mild 04/26/22 05/01/22 History sertraline 50 mg tablet 50 mg PO DAILY 04/26/22 05/01/22 History Allergies Allergy/AdvReac Type Severity Reaction Status Date / Time adalimumab AdvReac Intermediate RASH AT Verified 05/01/22 11:22 INJECTION SITE hydrocodone AdvReac Intermediate Rash Verified 05/01/22 11:22 meloxicam AdvReac Intermediate HIVES ON Verified 05/01/22 11:22 LEGS Chloroprep Allergy Mild Rash Uncoded 05/01/22 11:22 EMBREL AdvReac Intermediate RASH AT Uncoded 05/01/22 11:22 INJECTION SITE Exam Const: General: no acute distress Resp: Effort & Inspection: normal respiratory effort Auscultation: clear to auscultation bilaterally Cardio: Rate: regular rate Rhythm: regular rhythm GI: GI Palp: Yes Soft to palpation Extrem: General: normal to inspection Assessment and Plan Assessment and plan (1) Admission for sterilization: Code(s): Z30.2 - Encounter for sterilization Status: Acute Plan discussed RBA to salpingectomy for sterilization, consented. will proceed ancef
--- NOTE | 2022-05-01 11:59 | WPDHPUPDATE1 ---
History and Physical Update Update Date/Time: 05/01/22 11:59 History and Physical has been reviewed, including an updated exam of the patient. There are NO changes in the patient's condition. Risks, benefits, and alternatives have been discussed and questions answered. Patient agrees to proceed with procedure.
--- NOTE | 2022-05-01 12:25 | P.PNAN_ITS ---
Anes - Initial Pre Proc Eval Procedure: Operation Date: 05/01/22 13:00 Proposed Procedures p Laparoscopic Bilateral Salpingectomy - Jane Osorio MD Date/Time: 05/01/22 12:25 Surgeon: Jane Osorio MD Pre Op Diagnosis: desires sterilzation Patient Data Age: 27 Gender: F Height: 1.75 m Weight: 61.24 kg Allergies Allergy/AdvReac Type Severity Reaction Status Date / Time adalimumab AdvReac Intermediate RASH AT Verified 05/01/22 11:22 INJECTION SITE hydrocodone AdvReac Intermediate Rash Verified 05/01/22 11:22 meloxicam AdvReac Intermediate HIVES ON Verified 05/01/22 11:22 LEGS Chloroprep Allergy Mild Rash Uncoded 05/01/22 11:22 EMBREL AdvReac Intermediate RASH AT Uncoded 05/01/22 11:22 INJECTION SITE Home Medications Medication Instructions Recorded Confirmed Type duloxetine 30 mg capsule,delayed 30 mg PO DAILY 04/26/22 04/26/22 History release ibuprofen 200 mg tablet 400 mg PO Q6H PRN Pain, Mild 04/26/22 05/01/22 History sertraline 50 mg tablet 50 mg PO DAILY 04/26/22 05/01/22 History Patient hx anesthesia problems: none Family hx anesthesia problems: none Results Review: All pre-operative results and documents have been reviewed as part of the pre- operative evaluation. [facility], LAT[facility] Past Medical History Medical History Gastritis Rheumatoid arthritis Uveitis Surgical History Surgical History H/O endoscopy Family History Family History Sibling Asthma Father Gout Mother Hypothyroidism Arthritis Social History Social History Smoking packs per day: 0.25 Smoking cigarettes per day: 5.0 Years smoked: 3 Smoking pack-years: 0.75 Smoking status: Former smoker Tobacco type: cigarettes Second hand tobacco smoke exposure: No Alcohol intake: current Alcohol use details: very rarely Substance use: current Substance use type: marijuana Other substance usage details: daily Living arrangements: with family Spiritual care concerns: No Anes - Eval Final PreProcedure Day of Procedure 05/01/22 12:25 Patient weight: normal Heart: regular rate and rhythm Lungs: clear to auscultation Airway: Mallampati scale class II Neurological: alert and oriented Last oral intake: >/= 8 hours ASA classification: II Emergent: no Anesthetic plan: proceed Anesthesia type and monitoring: general ETT and standard monitoring Results Review: All pre-operative results and documents have been reviewed as part of the pre- operative evaluation. Informed Consent: The patient's anesthetic plan and its attendant risks and benefits were discussed with the patient/family/POA. Questions were solicited and answers provided to the satisfaction of the patient/family/POA.
[2022-05-01] MEDS: ceFAZolin 2 GM/D5W 50 ML 2 GM/50 ML BAG IVPB (13:19)
[2022-05-01] MEDS: BUPIVACAINE/EPINEPHRINE 0.25% 50 ML VIAL 8 ML INFILTRATE (13:39)
--- NOTE | 2022-05-01 14:14 | P.OP_ITS ---
Procedure Note - Detailed Date of Procedure 05/01/22 Pre-op Diagnosis desires sterilzation Post-op Diagnosis Same Procedure Performed Laparoscopic Bilateral Salpingectomy Surgeon Jane Osorio MD Anesthesia General Indications undesired future fertility Findings normal tubes and ovaries. right tube densely adherent to ovary over much of length. Description of Procedure The patient was taken to the OR and placed in dorthal lithotomy in [facility]. She received general anesthesia. A speculum was placed and the cervix grasped with a single tooth tenaculum and an acorn uterine manipulator placed easily. A del angel catheter had previously been placed. She had received preoperative antibiotics. A 5mm subumbilical skin incision was made and using direct visualization, the trocar was inserted intraperitoneally. The abdomen was insufflated and the pelvis inspected with the above findings. Bilateral 5mm incisions were made and trocars were placed under direct visualization. The left tube was grasped and elevated and using the Ligasure device, the tube was sequentially cauterized and ligated and removed through the trocar and sent to pathology. Similarly, on the right, the tube was removed using the Ligasure device, however the mid portion of the tube was densely adherent to the ovary and attenuated and thus was not fully removed. The fimbriated end was removed and the cornua and adjacent 3cm was removed. Hemostasis was noted. The upper abdomen was inspected and noted to be normal. The trocars were removed and the Co2 was removed from the abdomen. The skin was closed with 4-0 vicryl and steri strips. The patient tolerated the procedure well and was taken to the recovery room in stable condition. EBL 10cc. Estimated Blood Loss 10 Urine Output 200 Drains No Packing No Pathology Yes Complications No immediate complications Condition Stable Disposition Same day
[2022-05-01] MEDS: fentaNYL CITRATE INJ (*CRX) 100 MCG/2 ML VIAL 25 MCG IV PUSH ×6 (15:28→16:46)
[2022-05-01] MEDS: oxyCODONE HCL (*CRX) 5 MG TAB IR PO (16:21)
== END 2022-05-01 17:40 | disposition home or self-care (01) ==
PROVIDERS: PCP Physician Assistant; Visit Provider Obstetrics & Gynecology
PROC: (CPT 49320; principal; 2022-05-01 13:00)
DX: Z30.2 Encounter for sterilization (principal); M06.9 Rheumatoid arthritis, unspecified; Z87.891 Personal history of nicotine dependence
CPT/HCPCS: 58661; 88302; A9270; J0330; J0690; J1100; J1885; J2250; J2405; J2704; J3010; J7120

== ENCOUNTER 2022-08-19 08:46 | Outpatient (CLI) | payer OTHER, SELFPAY ==
--- NOTE | ~2022-08-19 | XR_ITS ---
EXAM: XR thoracic spine 2V DATE: 08/19/2022 09:15 HISTORY: low back pain, unspecified, NKI, hx: RA . COMPARISON: None available. FINDINGS: Exam limited by rotation in the lateral view and obscuration of the cervicothoracic junctio n. Mild scoliosis. Vertebral body alignment intact. Vertebral body heights preserved. No disc space n arrowing. No traumatic malalignment or fracture. Visualized lung parenchyma is clear. IMPRESSION: Mildly limited exam as detailed above. Grossly normal thoracic spine radiograph findings. Reviewed, dictated and finalized at location K. WELDER IMPRESSION: Mildly limited exam as detailed above. Grossly normal thoracic spin e radiograph findings.
--- NOTE | ~2022-08-19 | XR_ITS ---
EXAM: XR lumbar spine 2-3V DATE: 08/19/2022 09:15 HISTORY: low back pain, unspecified, NKI, HX: RA . COMPARISON: None available. FINDINGS: 5 nonrib-bearing lumbar-type vertebral bodies. Pedicles intact. Normal vertebral body alig nment. Vertebral body heights preserved. Disc spaces maintained. Normal facets and posterior elements . No fracture or dislocation. IMPRESSION: Normal lumbar spine radiograph findings. Reviewed, dictated and finalized at location K. RMATION RESOURCES MANAGER
--- NOTE | ~2022-08-19 | XR_ITS ---
EXAM: XR_CERV2-3V_CR DATE: 08/19/2022 09:16 HISTORY: low back pain, unspecified, NKI, hx: RA . COMPARISON: None available. FINDINGS: Cervical spine straightening. Craniocervical association and atlantoaxial joint are aligned . No prevertebral soft tissue swelling. Vertebral bodies are aligned. Vertebral body heights are main tained. Normal disc spaces. Normal facets and posterior elements. IMPRESSION: Cervical spine straightening as can occur with positioning or muscle spasm, otherwise nor mal cervical spine radiograph findings. Reviewed, dictated and finalized at location K. ATTACHER WOOD IMPRESSION: Cervical spine straightening as can occur with positioning or muscl e spasm, otherwise normal cervical spine radiograph findings.
== END 2022-08-19 08:47 | disposition home or self-care (01) ==
LOC: ANHIMG 08:50
PROVIDERS: PCP Physician Assistant; Visit Provider Physician Assistant
DX: M54.50 Low back pain, unspecified (principal); M54.6 Pain in thoracic spine; M54.2 Cervicalgia
CPT/HCPCS: 72040; 72070; 72100

== ENCOUNTER 2022-10-31 09:55 | Outpatient (CLI) | payer OTHER, SELFPAY ==
--- NOTE | 2022-10-31 11:00 | NEURO_ITS ---
Impression: Patient reports a history of pain in both legs. # Normal nerve conduction study. # Normal needle/EMG exam. # Clinical correlation recommended. Motor Nerve Conduction Lower Extremities Peroneal Nerve Conduction Velocity (m/sec) Terminal Latency (msec) Response Voltage(mV) Popliteal space-Ankle Ankle Extensor Dig Brevis Popliteal space Ankle Right 47-48 3.4 4-4 5 Left 51-51 3.4 3-3 3 Tibial Nerve Conduction Velocity (m/sec) Terminal Latency (msec) Response Voltage(mV) Popliteal space-Ankle Ankle-Extensor Dig Brevis Popliteal space Ankle Right 54 3.4 6 7 Left 49 3.8 5 4 F-waves Peroneal Nerve (ms) Tibial Nerve (ms) Right 52.0 51.8 Left 53.1 51.8 Sensory Nerve Conduction Lower Extremities Sural Nerve Stimulation Terminal Latency (msec) Ankle Response Voltage (uV) Ankle Response Velocity (m/sec) Right 4.1 19 44 Left 3.8 13 42 Superficial Peroneal Nerve Stimulation Terminal Latency (msec) Ankle Response Voltage (uV) Ankle Response Velocity (m/sec) Right 3.8 4 42 Left 3.7 6 44 Left Right Muscles Examined Fibrillation Fasciculation Scarcity Voltage Duration Left Right Left Right Left Right Left Right Left Right X X Ant Tibialis X X Gastroc X X Fibularis Long X X Flex Dig Long X X Ext Dig Brev Abd Hallucis Quadriceps Paraspinals MTDD
== END 2022-10-31 09:56 | disposition home or self-care (01) ==
LOC: ANHNEURO 09:56
PROVIDERS: PCP Physician Assistant; Visit Provider Physician Assistant
DX: G60.9 Hereditary and idiopathic neuropathy, unspecified (principal)
CPT/HCPCS: 95886; 95910

== ENCOUNTER 2023-10-17 01:23 | Day surgery (SDC) | payer OTHER, SELFPAY ==
[2023-10-05 09:32] VITALS: BMI 23.0
--- NOTE | 2023-10-05 09:37 | PC.NURSE ---
Report to the Outpatient Waiting Room, entrance under the green pavilion located off [facility], at time 0900 on date 10/17/23. Planned Procedure Time: 1100. Time changes happen often and if your time is changed the preop area will call you the afternoon before. - You and your visitor will be asked to self-screen and do not enter if you have any COVID symptoms. - A mask is optional within the hospital at this time. Patients may have clear liquids (water, carbonated beverages, clear teas, apple juice) until 3 hours prior to surgery with a maximum of 20 ounces. - No food from midnight until time of surgery Take the following medications with a SIP of water the morning of surgery: DULOXETINE DO NOT STOP ANY OF YOUR OTHER PRESCRIPTION MEDICATIONS PRIOR TO SURGERY ?EXCEPT THE FOLLOWING Medications to discontinue per physician: N/A Date to take last dose: N/A Please no make-up, nail haitian, hairspray, perfume, deodorant, or body powder the day of surgery. No jewelry (including any body piercings) or valuables the day of surgery, leave them at home. Please take a shower or bath the night before, or the morning of, surgery with an antibacterial soap. Wear comfortable, loose fitting clothing. - Jewelry must be removed prior to entering the operating room. Rings and piercings that are not removed may be cut off. - The hospital will not accept responsibility for valuables. - Please leave all valuables, including medications, at home the day of surgery. If you are going home after surgery, a licensed crew truck driver must drive you home. - NO public transportation without another adult if you receive anesthesia. - We recommend that an adult stay with you for 24 hours following discharge. - We also recommend that you do not drive, make important decision, drink alcoholic beverages, or take any drugs that were not prescribed by your health care provider for at least 24 hours after your discharge time. Follow any additional instructions given to you from your surgeon. If you or anyone in your household have experienced Covid symptoms in the past week, please notify your surgeon or the nurse liaison at the phone number below for possible testing. Telephone instructions given to PT - CLAUDIA MILLER and asked if any additional questions and then verbalized understanding. Patient advised to call surgeon office or pre surgery nurse liaison [phone] if any additional questions.
[2023-10-17] VITALS (10 sets, daily range): BP systolic 100–138; BP diastolic 57–74; PULSE 57–98; RESP 12–16; TEMP 36.4–36.7; O2SAT 96–100; BMI 22.5
[2023-10-17] MEDS: KETOROLAC 15 MG/ML VIAL (*BKC) IV PUSH (09:12)
[2023-10-17] MEDS: SCOPOLAMINE 1 MG PATCH 1 PATCH TRANSDERM (09:12)
[2023-10-17] MEDS: ACETAMINOPHEN 500 MG TABLET 1000 MG PO (09:12)
[2023-10-17] MEDS: LACTATED RINGERS 1,000 ML 30 ML IV CONT ×2 (09:13→13:22)
--- NOTE | 2023-10-17 10:15 | P.PNAN_ITS ---
Anes - Initial Pre Proc Eval Procedure: Operation Date: 10/17/23 11:00 Proposed Procedures p Diagnostic Laparoscopy, Laparoscopic Surgical Removal of Adnexal Mass - Sreedhar Peoples MD Date/Time: 10/17/23 10:15 Surgeon: Sreedhar Peoples MD Pre Op Diagnosis: Hydrosalpinx Patient Data Age: 28 Gender: F Height: 1.75 m Weight: 69.2 kg Last Vital Signs Temp 36.4 C 10/17/23 09:19 Pulse 69 10/17/23 09:19 Resp 16 10/17/23 09:19 BP 100/62 10/17/23 09:19 Pulse Ox 100 10/17/23 09:19 Allergies Allergy/AdvReac Type Severity Reaction Status Date / Time adalimumab AdvReac Intermediate RASH AT Verified 10/17/23 09:23 INJECTION SITE hydrocodone AdvReac Intermediate Rash Verified 10/17/23 09:23 meloxicam AdvReac Intermediate HIVES ON Verified 10/17/23 09:23 LEGS etanercept [From Enbrel] AdvReac Rash Verified 10/17/23 09:23 Chloroprep Allergy Severe Rash Uncoded 10/17/23 09:23 Home Medications Medication Instructions Recorded Confirmed Type duloxetine 30 mg capsule,delayed 30 mg PO DAILY 04/26/22 10/05/23 History release ibuprofen 200 mg tablet 400 mg PO Q6H PRN Pain, Mild 04/26/22 10/05/23 History diclofenac sodium 75 mg 75 mg PO BID 10/05/23 10/05/23 History tablet,delayed release Patient hx anesthesia problems: none Family hx anesthesia problems: none Results Review: All pre-operative results and documents have been reviewed as part of the pre- operative evaluation. [facility] Past Medical History Medical History Gastritis Rheumatoid arthritis Uveitis Surgical History Surgical History (Updated 10/17/23 @ 10:15 by Luther Sheets MD) H/O endoscopy History of tubal ligation Family History Family History Sibling Asthma Father Gout Mother Hypothyroidism Arthritis Social History Social History Smoking packs per day: 0.25 Smoking cigarettes per day: 5.0 Years smoked: 3 Smoking pack-years: 0.75 Smoking status: Former smoker Tobacco type: cigarettes Second hand tobacco smoke exposure: No Smoking end date: 08/20/21 Alcohol intake: current Alcohol use details: RARE Substance use: current Substance use type: marijuana Other substance usage details: daily Living arrangements: with family Spiritual care concerns: No Anes - Eval Final PreProcedure Day of Procedure 10/17/23 10:15 Patient weight: normal Heart: regular rate and rhythm Lungs: clear to auscultation Airway: Mallampati scale class II Neurological: alert and oriented Last oral intake: >/= 8 hours ASA classification: II Emergent: no Anesthetic plan: proceed Anesthesia type and monitoring: general ETT and standard monitoring Results Review: All pre-operative results and documents have been reviewed as part of the pre- operative evaluation. Informed Consent: The patient's anesthetic plan and its attendant risks and benefits were discussed with the patient/family/POA. Questions were solicited and answers provided to the satisfaction of the patient/family/POA.
--- NOTE | 2023-10-17 10:51 | PM.IMHP ---
H&P: HPI History of Present Illness Date/Time: 10/17/23 10:51 Chief Complaint: pelvic pain Narrative: Patient is a 28 year old female who presents for diagnostic laparoscopy and removal of adnexal structure. She underwent bilateral salpingectomy in 04/2022 and since that time has had lower R sided pelvic pain. Pelvic US demonstrated dilated tubal structure in the right adnexa, suspicious for dilated tubal remnant vs ovarian cyst. Pain has been sharp and constant since last visit. Expectant management vs surgical management and r/b/a of each discussed with patient. Patient reports pain worsening since initial evaluation, elects to proceed with diagnostic laparoscopy and removal of adnexal structure. Denies nausea, vomiting, dysuria, fever, or chills today. Review of Systems Review of Systems: All systems reviewed & are unremarkable except as noted in HPI and below PMFSH Past Medical History Medical History (Updated 10/17/23 @ 10:56 by Sreedhar Peoples MD) Gastritis Rheumatoid arthritis Uveitis Surgical History Surgical History (Updated 10/17/23 @ 10:55 by Sreedhar Peoples MD) H/O endoscopy History of tubal ligation Family History Family History Sibling Asthma Father Gout Mother Hypothyroidism Arthritis Social History Social History Smoking packs per day: 0.25 Smoking cigarettes per day: 5.0 Years smoked: 3 Smoking pack-years: 0.75 Smoking status: Former smoker Tobacco type: cigarettes Second hand tobacco smoke exposure: No Smoking end date: 08/20/21 Alcohol intake: current Alcohol use details: RARE Substance use: current Substance use type: marijuana Other substance usage details: daily Living arrangements: with family Spiritual care concerns: No Meds Home Medications and Allergies Home Medications Medication Instructions Recorded Confirmed Type duloxetine 30 mg capsule,delayed 30 mg PO DAILY 04/26/22 10/05/23 History release ibuprofen 200 mg tablet 400 mg PO Q6H PRN Pain, Mild 04/26/22 10/05/23 History diclofenac sodium 75 mg 75 mg PO BID 10/05/23 10/05/23 History tablet,delayed release Allergies Allergy/AdvReac Type Severity Reaction Status Date / Time adalimumab AdvReac Intermediate RASH AT Verified 10/17/23 09:23 INJECTION SITE hydrocodone AdvReac Intermediate Rash Verified 10/17/23 09:23 meloxicam AdvReac Intermediate HIVES ON Verified 10/17/23 09:23 LEGS etanercept [From Enbrel] AdvReac Rash Verified 10/17/23 09:23 Chloroprep Allergy Severe Rash Uncoded 10/17/23 09:23 Vital Signs Vital Signs - 24 hr 10/17/23 09:19 Temperature 97.6 F Pulse Rate 69 Respiratory Rate 16 Blood Pressure 100/62 Pulse Oximetry 100 Exam Const: General: no acute distress Resp: Effort & Inspection: normal respiratory effort Auscultation: clear to auscultation bilaterally Cardio: Rate: regular rate Rhythm: regular rhythm GI: GI Palp: Yes Soft to palpation Extrem: General: normal to inspection Assessment and Plan Assessment and plan (1) Pelvic pain: Code(s): R10.2 - Pelvic and perineal pain Status: Acute Assessment and Plan: Patient reports worsening pelvic pain since bilateral salpingectomy in 04/2022 Has attempted conservative management with OTC pain meds without relief Pain worsening since first evaluation Pelvic US 02/2023 demonstrates dilated anechoic tubular structure, [id number], increased in size from previous US 08/2022 R/b of surgical management discussed with patient, who elects to proceed with diagnostic laparoscopy and removal of adnexal structure All questions answered on day of procedure
--- NOTE | 2023-10-17 10:59 | WPDHPUPDATE1 ---
History and Physical Update Update Date/Time: 10/17/23 10:59 History and Physical has been reviewed, including an updated exam of the patient. There are NO changes in the patient's condition. Risks, benefits, and alternatives have been discussed and questions answered. Patient agrees to proceed with procedure.
--- NOTE | 2023-10-17 13:39 | P.OP_ITS ---
Procedure Note - Detailed Date of Procedure 10/17/23 Pre-op Diagnosis Hydrosalpinx Post-op Diagnosis Same Procedure Performed Diagnostic laparoscopy, removal of right adnexal structure Surgeon Sreedhar Peoples MD Clinical Research Assistant Katalina Bates MD Anesthesia General Indications pelvic pain, cystic structure on US measuring 4cm Findings normal appearing uterus and ovaries; left tube surgically absent; distal R fallopian tube adhered to ovarian surface and enlarged with clear fluid; normal appearing liver, gallbladder Description of Procedure The patient was taken to the operating room with IVFs running. She was placed into the dorsal supine position where she received general endotracheal anesthesia without difficulty. The patient was then placed in a dorsal lithotomy position, using Arturo stirrups. Exam under anesthesia revealed the above findings. Patient was then prepped and draped in the normal sterile fashion. A time-out procedure was performed and the OR team agreed on the patient and procedure. A del angel catheter was inserted under sterile technique, draining clear urine. Attention was turned to the patient's abdomen where the infraumbilical fold was incised with a scalpel, making a 5 mm horizontal incision. While tenting the patient's abdomen entry was made using the optiview trocar. Intraabdominal placement was confirmed by laparoscope. Underlying organs were inspected and found to be free of injury. The patient's pelvis was examined and the above listed findings noted. A 5 mm skin incision was then made in the LLQ. A 5 mm bladeless trocar was then inserted into the peritoneal cavity under direct visualization. Then, a 5 mm skin incision was made with the scalpel in the RLQ A 5 mm bladeless trocar was then inserted into the peritoneal cavity under direct visualization. The abdomen was then inspected. The gallbladder and liver were normal in appearance. The dilated right fallopian tube was grasped with a Maryland grasper and dissected off of the right ovary using the [place] Ligasure. The surgical bed was hemostatic. A small dilated tubal remnant was found at the uterine cornua, and this was removed in a similar fashion using the [place] ligasure. The cornua was hemostatic. Both specimens were removed from the abdomen and sent to pathology. The secondary trocars were then removed from the patient's abdomen. The pneumoperitoneum was expelled and the umbilical trocar removed. The skin incisions were then reapproximated with 4-0 monocryl in a subcuticular fashion. Indermil was then placed over the incisions. The del angel catheter was removed. The patient tolerated the procedure well. Sponge, lap, needle, and instrument counts were correct X2. The patient was taken out of the dorsal lithotomy position and was awakened from anesthesia and taken to the recovery room in stable condition.
[2023-10-17] MEDS: fentaNYL CITRATE INJ (*CRX) 100 MCG/2 ML VIAL 25 MCG IV PUSH (13:57)
[2023-10-17] MEDS: oxyCODONE HCL (*CRX) 5 MG TAB IR PO (14:49)
== END 2023-10-17 15:54 | disposition home or self-care (01) ==
PROVIDERS: Visit Provider Obstetrics & Gynecology
PROC: (CPT 49320; principal; 2023-10-17 11:00)
DX: N83.8 Other noninflammatory disorders of ovary, fallopian tube and broad ligament (principal); M06.9 Rheumatoid arthritis, unspecified; Z87.891 Personal history of nicotine dependence
CPT/HCPCS: 58661; 88304; A9270; J1100; J1170; J1200; J1885; J2250; J2405; J2704; J3010; J7030; J7120

== ENCOUNTER 2024-03-13 17:30 | Emergency (ER) | payer OTHER, SELFPAY ==
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
[2024-03-13 17:34] VITALS: BP 123/82; PULSE 91; RESP 20; TEMP 36.3; O2SAT 99
[2024-03-13] MEDS: methocarbamoL 500 MG TABLET 1000 MG PO (18:32)
[2024-03-13] MEDS: ACETAMINOPHEN 500 MG TABLET 1000 MG PO (18:32)
[2024-03-13] MEDS: LIDOCAINE 5% PATCH 1 PATCH TRANSDERM (18:32)
[2024-03-13 19:35] VITALS: BP 126/78; PULSE 79; RESP 18; TEMP 36.8; O2SAT 100
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
== END 2024-03-13 19:35 | disposition home or self-care (01) ==
PROVIDERS: Emergency Provider Student in an Organized Health Care Education/Training Program
DX: S13.4XXA Sprain of ligaments of cervical spine, initial encounter (principal); M06.9 Rheumatoid arthritis, unspecified; Z87.891 Personal history of nicotine dependence; V49.40XA Driver injured in collision with unspecified motor vehicles in traffic accident, initial encounter
CPT/HCPCS: 72125; 73030; 99284; A9270; L0140